=== PATIENT | male | born 1935 | race Caucasian/White ===

== ENCOUNTER → 2016-09-03 08:42 | Outpatient (CLI) | payer MEDICARE ==
[2014-02-27 07:04] VITALS: BMI 29.3
[~2016-09-03 08:42] MED LIST: BACTRIM 400-801 TAB PO; BAYER CHEWABLE81 MG PO; CYCLOBENZAPRINE10 MG PO; GLUCOPHAGE500 MG PO; HYZAAR 100-25 T1 TAB PO; LINZESS145 MCG PO; METOPROLOL TART25 MG PO; METOPROLOL TART50 MG PO; PLAVIX75 MG PO; PRAVACHOL20 MG PO
[2016-09-06 12:08] VITALS: BMI 28.9
== END | disposition home or self-care (01) ==
LOC: D.US 08:30
DX: R10.9 Unspecified abdominal pain (principal)

== ENCOUNTER 2016-09-04 19:57 | Inpatient (IN) | payer MEDICARE ==
[~2016-09-04] VITALS: Ht 180.3 cm; Wt 96.4 kg
--- NOTE | ~2016-09-04 | HEMODYNAMI ---
PATIENT:MANJIT DUFF MEDICAL RECORD: [id number] : 39 LOCATION:D. D.2104 ADMISSION DATE: 09/05/16 Generatedon:09/06/201614:08 Patient name: MANJIT DUFF Patient #: [id number] SSN: : 1935 Date of study: 09/06/2016 Page: Of Hemodynamic Procedure Report Patient Data Patient Demographics Procedure consent was obtained First Name: MANJIT Gender: Male Last Name: SHERIN : 1935 [facility] Initial: PATRICIA Age: 81 year(s) Patient #: [id number] Race: Unknown Additional ID: [id number] Contact details [address]: [address] [place] [address] State: [place] City: [place] Zip code: [address] Past Medical History Allergies Allergen Reaction Date Comments Reported Other allergy 09/06/2016 Novacaine Admission Admission Data Admission Date: 09/05/2016 Admission Time: 13:38 Admit Source: Emergency Insurance Payor: Private department health insurance, Medicare Room #: D.2104 Height (in.): 71 BSA: 2.17 (m2) Height (cm.): 180.34 BMI: 29.99 (kg/m2) Weight (lbs.): 215 Weight (kg.): 97.52 Lab Results Lab Result Date: 09/06/2016 Lab Result Time: 0:00 Biochemistry Name Units Result Min Max Creatinine mg/dl 1.1 --(--*-)-- 0.6 1.3 CBC Name Units Result Min Max Hemoglobin g/dl 13.3 -*(----)-- 13.5 17.5 Procedure Procedure Types Cath Procedure Diagnostic Procedure [facility] w/Coronaries PCI Procedure Coronary Stent Initial Procedure Description Procedure Date Procedure Date: 09/06/2016 Procedure Start Time: 13:24 Procedure End Time: 14:08 Procedure Staff Name Function Joel Monroy MD Performing Physician Pa Stallings RT Scrub Tiffany Velazquez RN Nurse Michele Roca RT Department Editor Sheela Counts RT Monitor Procedure Data Cath Procedure Fluoroscopy Diagnostic fluoroscopy Total fluoroscopy Time: 7.5 time: 7.5 min min Diagnostic fluoroscopy Total fluoroscopy dose: dose: 1074 mGy 1074 mGy Contrast Material Contrast Material Type Amount (ml) Isovue 300 192 Entry Location Entry Primary Successful Side Size Upsize Upsize Entry Closure Succes sful Closure Location (Fr) 1 (Fr) 2 (Fr) Remarks Device Remarks Femoral Right 5 Fr 6 Fr Exoseal artery Short Estimated blood loss: 10 ml Diagnostic catheters Device Type Used For End Catheter Placement Cordis 5Fr JL 4.0 Left Coronary Catheter (MP) Angiography Cordis 5Fr 3DRC Catheter Right Coronary (MP) Angiography Cordis 5Fr Pigtail LV Angiography Catheter (MP) Procedure Complications No complications Procedure Medications Medication Administration Route Dosage Oxygen NC 2 l/min unlisted medication added to field 10 ml Heparin Flush Bag added to field 2 bags (1000units/500ml NS) 0.9% NaCl I.V. 100 ml/hr Versed I.V. 1 mg Fentanyl I.V. 50 mcg Fentanyl I.V. 50 mcg Heparin Bolus I.V. 9400 units Nitroglycerin IC/IA I.C. 50 mcg Versed I.V. 1 mg Plavix P.O. 600 mg Hemodynamics Rest BSA: 2.17 (m2) O2 Consumption: Estimated: 273.95 (ml/min) O2 Consumption indexed : Estimated:126.24 (ml/min/m) Heart Rate: 101 (bpm) Pressure Samples Time Site Value (mmHg) Purpose Heart Use Rate(bpm) 13:32 LV 104/-3,7 EDP 105 13:33 AO 113/70(86) Pullback 104 13:33 LV 121/-7,8 Pullback 104 Gradients Valve Time Site 1 Site 2 Mean SEP/DFP Peak To Heart Use (mmHg) (sec/min) Peak Rate (mmHg) (bpm) Aortic 13:33 LV AO 12 21 8 104 121/-7,8 113/70(86) Calculations Valve P-P Mean Valve Index Valve Source Name Gradient Area Flow (cm2) Aortic 8 12 8 12 Snapshots Pre Cath Intra NCS Post Cath Vital Signs Time Heart Resp SPO2 etCO2 [id number] NIBP Rhythm Pain Sedation Rate (ipm) (%) (mmHg) (mmHg) (mmHg) Status Level (bpm) 13:11:24 101 26 98 0 0 95/65(86) NSR 0 (11) 10(A) , No pain 13:15:32 100 20 95 0 0 83/59(70) NSR 0 (11) 10(A) , No pain 13:19:28 102 18 97 0 0 101/79(93) NSR 0 (11) 10(A) , No pain 13:23:36 103 19 95 0 0 96/65(79) NSR 0 (11) 10(A) , No pain 13:27:41 99 19 94 0 0 98/67(86) NSR 0 (11) 9(A) , No pain 13:31:47 104 20 98 0 0 98/69(85) NSR 0 (11) 9(A) , No pain 13:35:51 103 24 97 0 0 101/73(88) NSR 0 (11) 9(A) , No pain 13:39:57 99 20 98 0 0 96/70(82) NSR 0 (11) 9(A) , No pain 13:44:00 107 22 98 0 0 92/61(75) NSR 0 (11) 9(A) , No pain 13:48:04 101 26 96 0 0 98/67(77) NSR 0 (11) 9(A) , No pain 13:52:10 103 22 96 0 0 83/66(75) NSR 0 (11) 9(A) , No pain 13:56:08 103 24 98 0 0 96/72(83) NSR 0 (11) 9(A) , No pain 14:00:11 104 25 97 0 0 91/68(82) NSR 0 (11) 10(A) , No pain 14:04:54 101 19 98 0 0 117/76(96) NSR 0 (11) 10(A) , No pain Medications Time Medication Route Dose Verified Delivered Reason Notes Effectiveness by by 13:11:47 Oxygen NC 2 Joel Buffie used for l/min Juan Velazquez finance professor 13:13:57 bupivicaine 0.25 added 10 ml Joel Joel for local % 5 to Juan Monroy MD anesthetic field 13:16:27 Heparin Flush added 2 Joel Joel used for Bag to bags Juan Monroy MD procedure (1000units/500ml field NS) 13:16:39 0.9% NaCl I.V. 100 Joel Buffie Per physician ml/hr Juan Velazquez RN 13:20:27 Versed I.V. 1 mg Joel Buffie for sedation Juan Velazquez RN 13:20:33 Fentanyl I.V. 50 Joel Buffie for sedation mcg Juan Velazquez RN 13:29:46 Fentanyl I.V. 50 Joel Buffie for sedation mcg Juan Velazquez RN 13:38:59 Heparin Bolus I.V. 9,400 Joel Buffie for verifi ed units Juan Velazquez RN anticoagulation with dr monroy 13:41:57 Nitroglycerin I.C. 50 Joel Joel for IC/IA mcg Juan cooley 13:50:59 Versed I.V. 1 mg Joel Buffie for sedation Juan Velazquez RN 14:02:30 Plavix P.O. 600 Joel Buffie for mg Juan Velazquez RN antiplatelet therapy Procedure Log Time Note 12:29:40 Admit Source: Emergency department 12:31:34 Patient allergic to Other allergyNovacaine 12:32:08 Patient Height : 71 cm 12:32:15 Patient Weight : 215 kg 12:35:43 Insurance Payor : Private health insurance, Medicare 12:36:24 Lab Result : Hemoglobin 13.3 g/dl 12:36:24 Lab Result : Creatinine 1.1 mg/dl 12:36:53 Lab Result : Troponin l 0.183 ng/ml 12:36:53 Lab Result : CK-MB 2.5 ng/ml 12:38:02 Diagnostic Cath Status : Urgent 12:38:14 Michele Roca RT(R) sent for patient. Start room use. 12:38:15 Time tracking: Regular hours 12:38:19 Plan of Care:Hemodynamics will remain stable., Cardiac rhythm will remain stable., Comfort level will be maintained., Respiratory function will remain adequate., Patient/ family verbilizes understanding of procedure., Procedure tolerated without complication., Recovers from procedure without complications.. 12:38:24 ACC Patient presents with Unstable Angina CCS Anginal Class 4--Inability to carry out any physical activity w/o angina. Angina may occur at rest. 12:38:27 ACCPatient has been prescribed/administered the following anti-anginal medication within the last 2 weeks: None 12:38:43 H&P Date Dictated: 09/05/2016 Within 30 days and on chart.. 12:57:48 Patient received from PCU to CCL 2 Alert and oriented. Tansferred to table in Supine position. 12:57:49 Warm blankets applied, and bobby hugger turned on for patient comfort. 12:57:49 Correct patient and procedure confirmed by team. 12:57:51 Signed procedure consent form obtained from patient. 12:57:52 ECG and BP/O2 sat monitors applied to patient. 12:57:53 Full Disclosure recording started 13:10:18 Vital chart was started 13:10:25 Rhythm: sinus tachycardia 13:10:29 Pre-procedure instructions explained to patient. 13:10:29 Pre-op teaching completed and patient verbalized understanding. 13:10:32 Family in waiting room. 13:10:33 Patient NPO since Midnight. 13:10:36 Is the patient allergic to Iodine/contrast media? No. 13:11:12 Is patient on blood thinner?No 13:11:44 ACC The patient was administered the following blood thiners within the last 24 hours: None 13:11:47 Oxygen 2 l/min NC was given by Tiffany Velazquez RN; used for procedure; 13:13:57 bupivicaine 0.25 % 5 10 ml added to field was given by Joel Monroy MD; for local anesthetic; 13:14:33 Patient diabetic? No. 13:14:38 Previous problem with sedation/anesthesia? No ? 13:14:38 Snore? Yes 13:14:40 Sleep apnea? No 13:14:41 Deviated septum? No 13:14:42 Opens mouth fully? Yes 13:14:43 Sticks out tongue? Yes 13:14:45 Airway obstruction? No ? 13:14:47 Dentures? No ? 13:14:51 Pre procedure: right dorsailis pedis pulse 2+ Normal; easily identifiable; not easily obliterated 13:14:53 Patient pain scale 0/10 ?. 13:15:05 IV patent on arrival in left hand with 0.9% NaCl at KVO. 13:15:11 Lab results completed and on chart. 13:15:14 Right groin area was prepped with chlora-prep and draped in sterile fashion 13:15:15 Alarms reviewed by R. N. 13:15:15 Sharps counted by scrub and verified by R.N. 13:15:20 Use device set Femoral Dx 13:15:22 Acist Syringe opened to sterile field. 13:15:22 Bag Decanter opened to sterile field. 13:15:23 Cardinal Cath Pack opened to sterile field. 13:15:23 Terumo 5Fr Viola Sheath opened to sterile field. 13:15:24 [facility] 260cm J .035 wire opened to sterile field. 13:15:25 Acist Hand Control opened to sterile field. 13:15:26 Acist Manifold opened to sterile field. 13:15:26 Cordis Infinity 5Fr Multipack catheter opened to sterile field. 13:15:27 Tegaderm 4 x 4 opened to sterile field. 13:16:27 Heparin Flush Bag (1000units/500ml NS) 2 bags added to field was given by Joel Monroy MD; used for procedure; 13:16:30 Baseline sample Acquired. 13:16:39 0.9% NaCl 100 ml/hr I.V. was given by Tiffany Velazquez RN; Per physician; 13:19:30 Final Timeout: patient, procedure, and site verified with staff and physician. All members of the team are in agreement. 13:19:33 Right groin site verified by team. 13:19:36 Physical assessment completed. ASA score P 2 - A patient with mild systemic disease as per Joel Monroy MD. 13:19:38 Sedation plan: IV Moderate Sedation Versed, Fentanyl 13:20:27 Versed 1 mg I.V. was given by Tiffany Velazquez RN; for sedation; 13:20:33 Fentanyl 50 mcg I.V. was given by Tiffany Velazquez RN; for sedation; 13:23:55 Procedure started. 13:24:18 Local anesthetic to right femoral artery with Lidocaine 2% by Joel Monroy MD.INITIAL ACCESS ONLY 13:25:02 Zero performed for pressure channel P1 13:25:58 A 5 Fr sheath was inserted into the Right Femoral artery 13:26:38 A Cordis 5Fr JL 4.0 Catheter () was advanced over the wire and used for Left Coronary Angiography. 13:29:46 Fentanyl 50 mcg I.V. was given by Buffie Velazquez RN; for sedation; 13:30:11 Catheter removed. 13:30:16 A Cordis 5Fr 3DRC Catheter (MP) was advanced over the wire and used for Right Coronary Angiography. 13:31:40 Catheter removed. 13:31:49 A Cordis 5Fr Pigtail Catheter (MP) was advanced over the wire and used for LV Angiography. 13:32:47 LV gram done using BUKCLEY 13:32:49 LV hemodynamics recorded. 13:32:51 Injector settings: Ml/sec: 10, Volume: 20, 13:32:56 EF : 45 % 13:33:58 Catheter removed. 13:34:15 Cordis 6FR XBLAD 3.5 guide catheter opened to sterile field. 13:34:16 PeakStreamW [place] 2 J-tip 300cm 0.014 guide wir opened to sterile field. 13:34:17 RevelationixCompak Inflation Kit opened to sterile field. 13:34:22 High Pressure Extension Tubing (Juan) opened to sterile field. 13:36:16 Terumo 6Fr Viola Sheath opened to sterile field. 13:36:26 Sheath upsized to a 6 Fr Short. 13:36:43 ACC PCI Site: mLAD has 80% stenosis. 13:36:45 ACC Pre-intervention KIM Flow is 3. 13:37:34 6 Fr XBLAD 3.5 guide catheter was inserted over the wire 13:38:59 Heparin Bolus 9,400 units I.V. was given by Tiffany Velazquez RN; for anticoagulation; verified with dr monroy 13:39:44 BMW wire advanced. 13:41:57 Nitroglycerin IC/IA 50 mcg I.C. was given by Joel Monroy MD; for vasodilation; 13:47:23 Inflation Number: 1 A Medtronic Integrity 2.25 X 18 stent was prepped and advanced across the Mid LAD. The stent was deployed at 12 SIMONE for 0:23 (min:sec). 13:49:48 Stent catheter was removed intact over wire. 13:50:59 Versed 1 mg I.V. was given by Tiffany Velazquez RN; for sedation; 13:53:54 Inflation Number: 1 A Medtronic Integrity 2.75 X 14 stent was prepped and advanced across the Prox LAD. The stent was deployed at 12 SIMONE for 0:07 (min:sec). 13:59:40 Stent catheter was removed intact over wire. 13:59:41 Wire removed. 13:59:42 Guide catheter removed. 13:59:51 Cordis 6Fr Exoseal opened to sterile field. 14:00:22 Sheath removed intact; hemostasis achieved with Exoseal to the Right Femoral artery. 14:00:25 Procedure ended.(Physican Out) 14:00:37 Fluoroscopy time 07.50 minutes. 14:00:56 Fluoroscopy dose: 1074 mGy 14:00:56 Flurop Dose total: 1074 14:01:02 Contrast amount:Isovue 300 192ml. 14:01:03 Sharps counted by scrub and verified by R.N. 14:01:04 Insertion/operative site no bleeding no hematoma. 14:01:07 Post-op/insertion site Right Femoral artery dressed using a 4 x 4 and Tegaderm. 14:01:12 Post right femoral artery:stable, clean and dry 14:01:24 Post Procedure Pulses reassessed and unchanged 14:01:55 Post-procedure physical assessment completed. ASA score P 2 - A patient with mild systemic disease as per Joel Monroy MD. 14:01:58 Post procedure rhythm: unchanged. 14:02:03 Estimated blood loss: 10 ml 14:02:04 Post procedure instruction explained to patient.Patient verbalizes understanding. 14:02:05 Patient needs reinforcement of post procedure teaching. 14:02:12 Procedure type changed to Cath procedure, Diagnostic procedure, LHC, LHC w/Coronaries, PCI procedure, Coronary Stent Initial 14:02:17 Procedure Complication : No complications 14:02:19 See physician's report for complete and final results. 14:02:30 Plavix 600 mg P.O. was given by Tiffany Velazquez RN; for antiplatelet therapy; 14:05:17 Procedure and supply charges have been captured, reviewed, submitted and are correct. 14:08:11 Vital chart was stopped 14:08:14 Report given to PCU. 14:08:19 Patient transfered to PCU with Bed. 14:08:26 Procedure ended. 14:08:26 Full Disclosure recording stopped 14:08:30 End room use (Document Last) Intervention Summary Intervention Notes Time ActionType Lesion and Equipment Action# Pressure Duration Attributes Used 13:47:23 Place stent Mid LAD Medtronic 1 12 00:23 Integrity 2.25 X 18 stent 13:53:54 Place stent Prox LAD Medtronic 1 12 00:07 Integrity 2.75 X 14 stent Device Usage Item Name Manufacture Quantity Catalog Hospital Part Current Minimal Lot# / Number Charge Number Stock Stock Serial# Code Acist Acist 1 18848 [id number] 213845 500248 20 Syringe Medical Systems Inc Bag Microtek 1 2002S 490177 85446 360641 5 [employer] Cardinal Cardinal [address] [address]67 78338 377790 5 Cath Pack Health Terumo 5Fr Terumo 1 [id number] 323816 405544 849584 [address] [facility] 1 150889 708751 848374 575921 30 260cm J .035 wire Acist Hand Acist 1 69192 983434 214399 486370 5 Control Medical Systems Inc Acist Acist 1 06598 678457 090959 893274 5 SEA Medical Systems Inc Cordis Cardinal 1 [id number] 576355 40428 200909 30 Infinity Health 5Fr Multipack catheter Tegaderm 4 3M 1 1626W 776739 172935 654509 5 x 4 Cordis 5Fr Cardinal 1 830071 5 JL 4.0 Health Catheter (MP) Cordis 5Fr Cardinal 1 205669 5 3DRC Health Catheter (MP) Cordis 5Fr Cardinal 1 435770 5 Pigtail Health Catheter (MP) Cordis 6FR Cardinal 1 16280678 095953 306031 205612 10 XBLAD 3.5 Health guide catheter [place] [employer] BMW [place] 1 [id number] 290042 622353 190277 5 [place] 2 Vascular J-tip 300cm 0.014 guide wir Merit Merit 1 [id number] 921993 481029 274781 15 [employer] Medical Inflation Kit High Merit 1 [id number] 146495 32896 239920 10 Pressure Medical Extension Tubing (Monroy) Terumo 6Fr Terumo 1 ELR588 664661 029467 920130 40 Viola Sheath Medtronic Medtronic 1 [id number] 677599 412532 800032 8 [id number] Integrity 2.25 X 18 stent Medtronic Medtronic 1 [id number] 361641 745369 183873 2 [id number] Integrity 2.75 X 14 stent Cordis 6Fr Cardinal 1 [id number] 169148 416003 650061 10 [facility] Signature Audit [place] Stage Time Signature Unsigned Intra-Procedure 09/06/2016 Sheela 2:08:53 PM Counts RT(R) Signatures Monitor : Sheela Signature : Counts RT Date : Time : [address] [address]
[~2016-09-04 19:57] MED LIST changes: -BACTRIM 400-801 TAB PO; -CYCLOBENZAPRINE10 MG PO; -LINZESS145 MCG PO; -METOPROLOL TART25 MG PO
[2016-09-04 20:37] LABS: BASOPHILS 0.2 % (0.0-2.0); EOSINOPHILS 0.2 % (0-7); HEMATOCRIT 39.9 % (42.0-54.0); HEMOGLOBIN 13.4 g/dL (13.5-17.5); IMMATURE GRANULOCYTES 0.2 % (0-5); LYMPHOCYTES 15.5 % (15-50); MCH 32.1 pg (26.0-34.0); MCHC 33.6 g/dL (31.0-37.0); MCV 95.7 fL (80.0-100.0); MEAN PLATELET VOLUME 10.1 fL (7.4-10.4); MONOCYTES 9.8 % (2-11); NEUTROPHILS 74.1 % (40-80); PLATELET COUNT 145 10x3/uL (130-400); RBC 4.17 10x6/uL (4.20-6.10); RDW 13.7 % (11.5-14.5)
[2016-09-04 20:53] LABS: ALBUMIN 3.1 g/dL (3.4-5.0); ANION GAP 11.7 mmol/L (8-16); BILIRUBIN - TOTAL 1.31 mg/dL (0.2-1.3); CALCIUM 8.8 mg/dL (8.5-10.1); CARBON DIOXIDE 28.7 mmol/L (21.0-32.0); CREATININE - SERUM 1.3 mg/dL (0.6-1.3); POTASSIUM - SERUM 3.4 mmol/L (3.5-5.1); PROTEIN - SERUM 6.1 g/dL (6.4-8.2)
[2016-09-04 21:01] LABS: TROPONIN-I 0.046 ng/mL (0.000-0.060)
[2016-09-04 22:18] LABS: HEMATOCRIT 40.1 % (42.0-54.0); HEMOGLOBIN 13.1 g/dL (13.5-17.5)
[2016-09-04 22:47] LABS: CALC OSMOLALITY 281 mosm/kg (275-300); CALCIUM 8.2 mg/dL (8.5-10.1); CARBON DIOXIDE 27.5 mmol/L (21.0-32.0); CHLORIDE - SERUM 101 mmol/L (98-107); CKMB 1.5 U/L (0.0-3.6); CREATINE KINASE 76 UL (21-232); CREATININE - SERUM 1.3 mg/dL (0.6-1.3); GLUCOSE 188 mg/dL (74-106); POTASSIUM - SERUM 3.2 mmol/L (3.5-5.1); SODIUM 138 mmol/L (136-145); UREA NITROGEN 15 mg/dL (7-18); eGFR NON AFRICAN AMERICAN 56 mL/min (90-120)
[2016-09-04 22:52] LABS: TROPONIN-I 0.091 ng/mL (0.000-0.060)
--- NOTE | 2016-09-04 23:34 | NUR ---
PT ARRIVED VIA STRETCHER FROM ER. PT STATES HE IS TOO WEAK TO GET OFF THE STRETCHER AND INTO BED. ALERT AND ORIENTED. AT BEDSIDE.
[2016-09-04 23:54] VITALS: BP 117/84; BMI 30.1
[2016-09-05] MEDS ORDERED: BACTRIM 400-801 TAB PO (00:01)
[2016-09-05] MEDS ORDERED: LINZESS145 MCG PO (00:01)
[2016-09-05] MEDS ORDERED: METOPROLOL TART25 MG PO (00:01)
[2016-09-05] MEDS ORDERED: CYCLOBENZAPRINE10 MG PO (00:02)
--- NOTE | 2016-09-05 00:04 | NUR ---
PT ARRIVED VIA STRETCHER APPROX 2330. ALERT ORIENTED CONVERSANT. DENIES NEEDS. STATES SHORTNESS OF BREATH ON EXERTION. STATES BETTER WHEN NOT TRYING TO WALK. AT BEDSIDE.
[2016-09-05 00:35] VITALS: BP 117/84
[2016-09-05 04:28] VITALS: BP 141/83
[2016-09-05 06:51] LABS: CKMB 2.1 U/L (0.0-3.6); CREATINE KINASE 75 UL (21-232); TROPONIN-I 0.142 ng/mL (0.000-0.060)
--- NOTE | 2016-09-05 07:28 | NUR ---
AM ROUNDING- PT SITTING UP IN CHAIR WATCHING TV. DENIES ANY NEED AT CURRENT TIME. PT IS AWAITING DOCTOR TO MAKE ROUNDS. ON MONITOR SHOWING ST, HR 118. PER REPORT FROM UNDERWRITING CLERKS SUPERVISOR NURSE ASPEN, PTS HR HAS BEEN RUNNING HIGH, PT IS ASYMPTOMATIC. IV SEEN TO LEFT HAND SALINE LOCKED AND PATENT. ON 02 AT 3L VIA NC. AWAITING DOCTOR TO MAKE ROUNDS FOR NEW ORDERS. NO NEED AT CURRENT TIME BY PT. WILL CONTINUE TO MONITOR.
[2016-09-05 08:00] VITALS: BP 121/74
--- NOTE | 2016-09-05 10:34 | NUR ---
PAGED DR. HOBSON TO INFORM HIM OF PTS AM LAB RESULTS. PTS POTASSIUM IS 3.2. AWAITIG CALLBACK.
--- NOTE | 2016-09-05 10:36 | NUR ---
DR. HOBSON CALLED BACK. NEW ORDERS RECEIVED TO PLACE PT ON EP. WILL CONTINUE TO MONITOR.
[2016-09-05 10:52] LABS: CKMB 2.5 U/L (0.0-3.6); CREATINE KINASE 67 UL (21-232)
[2016-09-05 10:53] LABS: TROPONIN-I 0.183 ng/mL (0.000-0.060)
[2016-09-05 12:00] VITALS: BP 110/71
--- NOTE | 2016-09-05 13:23 | NUR ---
TALKED TO DR. HOBSON, STATED FAMILY WAS CONCERNED ABOUT PTS MEDICATONS. DR. HOBSON STATED HE WAS GOING IN TO SEE THE PT FIRST. AWAITING NEW ORDERS.
[2016-09-05 14:32] VITALS: BP 116/75
--- NOTE | 2016-09-05 14:52 | NUR ---
CONSENTS SIGNED AND DATED AND PLACED IN CHART FOR CARDIAC CATH TOMORROW.
[2016-09-05 15:28] LABS: BASOPHILS 0.1 % (0.0-2.0); EOSINOPHILS 0.1 % (0-7); HEMATOCRIT 42.2 % (42.0-54.0); HEMOGLOBIN 13.9 g/dL (13.5-17.5); IMMATURE GRANULOCYTES 0.4 % (0-5); LYMPHOCYTES 14.1 % (15-50); MCH 31.4 pg (26.0-34.0); MCHC 32.9 g/dL (31.0-37.0); MCV 95.5 fL (80.0-100.0); MONOCYTES 9.7 % (2-11); NEUTROPHILS 75.6 % (40-80); PLATELET COUNT 151 10x3/uL (130-400); RBC 4.42 10x6/uL (4.20-6.10); WBC 10.8 10x3/uL (4.8-10.8)
--- NOTE | 2016-09-05 16:39 | NUR ---
NEW ORDERS RECEIVED FROM DR. HOBSON FOR SCDS. WILL PLACE ON PT ORDERED.
--- NOTE | 2016-09-05 17:52 | NUR ---
SCDS PLACED ON PT ORDERED.
--- NOTE | 2016-09-05 18:45 | NUR ---
PT SITTING UP IN BED WATCHING TV. DENIES ANY NEED AT CURRENT TIME. WILL CONTINUE TO MONITOR.
--- NOTE | 2016-09-05 19:30 | NUR ---
SITTING UP IN BEDSIDE CHAIR VISITING WITH FAMILY MEMBERS, RESP UNLAB WITH O2 @3L NC IN USE. TELEMETRY IN PLACE SHOWING HR SR PER READINESS PARAPROFESSIONAL. LEFT HAND SL INTACT WITH NO R/S NOTED AT SITE. UP AD RICHIE W/O DIFF. BILAT SCDS TO LOWER LEGS IN PLACE. DENIES NEEDS AT THIS TIME. C/L IN REACH. CONTINUE TO MONITOR.
[2016-09-05 20:00] VITALS: BP 117/69
--- NOTE | 2016-09-05 20:58 | NUR ---
BACK IN BED, ATIVAN 0.5MG PO GIVEN FOR ANXIETY. C/L IN REACH.
--- NOTE | 2016-09-05 23:10 | NUR ---
EYES CLOSED, RESP UNLAB WITH NO S/S OF ACUTE DISTRESS NOTED. C/L IN REACH. CONTINUE TO MONITOR.
[2016-09-06 00:33] VITALS: BP 124/79
[2016-09-06 03:44] LABS: BASOPHILS 0.2 % (0.0-2.0); EOSINOPHILS 0.1 % (0-7); HEMATOCRIT 39.8 % (42.0-54.0); HEMOGLOBIN 13.3 g/dL (13.5-17.5); IMMATURE GRANULOCYTES 0.3 % (0-5); LYMPHOCYTES 14.1 % (15-50); MCH 31.9 pg (26.0-34.0); MCHC 33.4 g/dL (31.0-37.0); MCV 95.4 fL (80.0-100.0); MEAN PLATELET VOLUME 9.9 fL (7.4-10.4); MONOCYTES 8.6 % (2-11); NEUTROPHILS 76.7 % (40-80); PLATELET COUNT 159 10x3/uL (130-400); RBC 4.17 10x6/uL (4.20-6.10); RDW 13.9 % (11.5-14.5); WBC 12.7 10x3/uL (4.8-10.8)
[2016-09-06 04:00] LABS: INR 1.23 (0.85-1.17); PROTIME 15.4 SECONDS (11.6-15.0)
[2016-09-06 04:01] LABS: APTT 29.3 SECONDS (22.8-39.4); CALCIUM 9.4 mg/dL (8.5-10.1); CARBON DIOXIDE 26.3 mmol/L (21.0-32.0); CREATININE - SERUM 1.1 mg/dL (0.6-1.3); POTASSIUM - SERUM 4.3 mmol/L (3.5-5.1)
--- NOTE | 2016-09-06 04:39 | NUR ---
VOICES NO C/O PAIN OR DISCOMFORT AT THIS TIME. HOB UP, SR UP X2, C/L IN REACH. CONTINUE TO MONITOR.
[2016-09-06 05:19] VITALS: BP 123/72
[2016-09-06 12:08] VITALS: Ht 180.3 cm; Wt 96.4 kg
[2016-09-06 12:33] VITALS: BP 111/79
--- NOTE | 2016-09-06 12:37 | NUR ---
HASD BEEN UP IN CHAIR WAITING FOR CATH. NO DISTRESS OR COMPLAINTS NOTED. NO CO OF CHEST PAIN. MONITOR SHOWS ST@105. WILL CONTINUE TO MONITOR
--- NOTE | 2016-09-06 12:54 | NUR ---
TO BRANCH CHIEF.
--- NOTE | 2016-09-06 14:29 | NUR ---
BACK FROM FUSING MACHINE OPERATOR. R GROIN IS CLEAN,DRY. NO EDEMA OR BLEEDING. PEDAL PULSE IS PRESENT. PATIENT INSTRUCTED TO LAY FLAT FOR 4 HOURS. VS STABLE. WILL CONTINUE TO MONITOR
--- NOTE | 2016-09-06 15:42 | NUR ---
SITE REMAINS CLEAN DRY & NO EDEMA AND NO BLEEDING
--- NOTE | 2016-09-06 18:30 | NUR ---
CAN SIT UP AND MOVE AROUND AT THIS TIME. RT GROIN CDI, WITH PPP BILAT WITH FEET WARM AND DRY. TELEMETRY IN PLACE SHOWING HR ST AT 113 WITH FIRST DEGREE AVB PER FOUNTAIN PEN NIBS INSPECTOR. LEFT HAND SL INTACT WITH NO R/S NOTED AT SITE. O2 @ 3L NC IN PLACE, RESP EVEN AND UNLAB. VOICES NO C/O PAIN OR DISCOMFORT. CONSTINUE TO MONITOR.
--- NOTE | 2016-09-06 18:45 | NUR ---
SITTING UP IN BEDSIDE CHAIR EATING DINNER. VOICES NO C/O AT THIS TIME. C/L IN REACH.
--- NOTE | 2016-09-06 21:18 | NUR ---
BACK IN BED W/O DIFF. HAVING SOME ANXIETY/AGITATION AT THIS TIME. ATIVAN 0.5MG PO GIVEN AT THIS TIME. C/L IN REACH. VISITING AT BEDSIDE.
[2016-09-06 21:43] VITALS: BP 151/83
--- NOTE | 2016-09-06 23:53 | NUR ---
EYES CLOSED, RESP UNLAB WITH NO S/S OF ACUTE DISTRESS NOTED. C/L IN REACH. CONTINUE TO MONITOR.
[2016-09-07 02:17] VITALS: BP 131/63
[2016-09-07 05:24] LABS: BASOPHILS 0.1 % (0.0-2.0); EOSINOPHILS 0.2 % (0-7); HEMATOCRIT 38.6 % (42.0-54.0); HEMOGLOBIN 12.8 g/dL (13.5-17.5); IMMATURE GRANULOCYTES 0.3 % (0-5); LYMPHOCYTES 13.7 % (15-50); MCH 31.4 pg (26.0-34.0); MCHC 33.2 g/dL (31.0-37.0); MCV 94.6 fL (80.0-100.0); MEAN PLATELET VOLUME 10.1 fL (7.4-10.4); NEUTROPHILS 74.7 % (40-80); PLATELET COUNT 153 10x3/uL (130-400); RBC 4.08 10x6/uL (4.20-6.10); RDW 13.7 % (11.5-14.5)
[2016-09-07 05:33] LABS: WBC 9.5 10x3/uL (4.8-10.8)
[2016-09-07 05:45] VITALS: BP 129/63
[2016-09-07 05:49] LABS: ANION GAP 15.3 mmol/L (8-16); CALCIUM 8.9 mg/dL (8.5-10.1); CARBON DIOXIDE 25.6 mmol/L (21.0-32.0); CREATININE - SERUM 1.2 mg/dL (0.6-1.3); POTASSIUM - SERUM 3.9 mmol/L (3.5-5.1)
--- NOTE | 2016-09-07 07:45 | NUR ---
PT SITTIN UP IN CHAIR AT BEDSIDE. BRUSHING TEETH. SPOUSE IN ROOM. PT A/O. WAITING ON CXR. DENIES NEEDS. STATES SOB BETTER. CALL LIGHT WITH IN REACH. WILL CONT. TO MONITOR.
[2016-09-07 07:52] VITALS: BP 131/86
--- NOTE | 2016-09-07 09:43 | NUR ---
SITTING UP IN CHAIR. NO APPARENT DISTRESS. MONITOR SHOWS ST @ RATE OF 103.
[2016-09-07 12:08] VITALS: BP 150/71
--- NOTE | 2016-09-07 13:51 | NUR ---
SITTING UP IN CHAIR AT BEDSIDE. LE ELEVATED. NO DISTRESS NOTED. DENIES NEEDS. DENIES SOB. CALL LIGHT WITH IN REACH. WILL CONT. TO MONITOR.
[2016-09-07 15:51] VITALS: BP 137/77
--- NOTE | 2016-09-07 16:30 | NUR ---
PT SITTING IN CHAIR AT BEDSIDE. A/O. DENIES NEEDS. NO DISTRESS NOTED. C/O HIS ROOM BEING HOT. REQUEST HIS DOOR BE LEFT OPEN. CALL LIGHT WITH IN REACH. WILL CONT. TO MONITOR.
--- NOTE | 2016-09-07 18:37 | NUR ---
PT SITTING IN CHAIR AT BEDSIDE. LE ELEVATED. A/O DENIES NEEDS. SPOUSE IN ROOM. CALL LIGHT WITH IN REACH.
--- NOTE | 2016-09-07 19:30 | NUR ---
ASSESSMENT COMPLETE, IN BED WITH EYES CLOSED, RESP UNLAB NOT WEARING O2 @ 2 L VIA NC AT THIS TIME. HOB UP SR UP X2, C/L IN REACH. VISITING AT BEDSIDE. DENIES NEEDS UPON AROUSAL TELEMETRY IN PLACE, SHOWING HR ST PER CHILD SUPPORT SPECIALIST. LEFT HAND SL INTACT AND PATENT WITH NO R/S NOTED AT SITE. RT GROIN DRSG CDI, PPP BILAT WITH SKIN WARM AND DRY. NOT WEARING SCDS AT THIS TIME. UP AD RICHIE W/O DIFF. CONTINUE TO MONITOR.
[2016-09-07 21:06] VITALS: BP 133/70
--- NOTE | 2016-09-07 21:40 | NUR ---
ATIVAN 0.5MG PO GIVEN FOR C/O AGITATION. COMFORT MEASURES GIVEN. HOB UP SR UP X2, C/L IN REACH. CONTINUE TO MONITOR.
[2016-09-08 00:43] VITALS: BP 103/65
--- NOTE | 2016-09-08 01:05 | NUR ---
EYES CLOSED, RESP EVEN AND UNLAB WITH NO S/S OF ACUTE DISTRESS NOTED. C/L IN REACH.
[2016-09-08 04:57] LABS: BASOPHILS 0.3 % (0.0-2.0); EOSINOPHILS 0.3 % (0-7); HEMATOCRIT 37.6 % (42.0-54.0); HEMOGLOBIN 12.5 g/dL (13.5-17.5); IMMATURE GRANULOCYTES 0.1 % (0-5); LYMPHOCYTES 16.1 % (15-50); MCH 31.6 pg (26.0-34.0); MCHC 33.2 g/dL (31.0-37.0); MCV 94.9 fL (80.0-100.0); MEAN PLATELET VOLUME 9.9 fL (7.4-10.4); NEUTROPHILS 73.2 % (40-80); PLATELET COUNT 182 10x3/uL (130-400); RBC 3.96 10x6/uL (4.20-6.10); RDW 13.8 % (11.5-14.5); WBC 8.7 10x3/uL (4.8-10.8)
[2016-09-08 05:21] LABS: ALBUMIN 2.5 g/dL (3.4-5.0); ANION GAP 13.1 mmol/L (8-16); BILIRUBIN - TOTAL 1.2 mg/dL (0.2-1.3); CALCIUM 8.8 mg/dL (8.5-10.1); CARBON DIOXIDE 27.2 mmol/L (21.0-32.0); CREATININE - SERUM 1.1 mg/dL (0.6-1.3); MAGNESIUM - SERUM 1.9 mg/dL (1.8-2.4); PHOSPHOROUS 2.7 mg/dL (2.5-4.9); PROTEIN - SERUM 6.4 g/dL (6.4-8.2)
[2016-09-08 05:26] VITALS: BP 117/55
[2016-09-08 05:31] LABS: POTASSIUM - SERUM 3.3 mmol/L (3.5-5.1)
--- NOTE | 2016-09-08 07:52 | NUR ---
ASSESSMENT DONE. PT SITTING UP IN CHAIR AT BEDSIDE. A/O, BUT SLIGHTLY CONFUSED ABOUT TIME. REQUEST COFFEE. REFUSING TO WEAR SCD'S AT THIS TIME. PT WANTS TO D/C TO A REHAB. REFUSING TO WEAR O2. O2 SAT 93% ON RA. CALL LIGHT WITH IN REACH. WILL CONT. TO MONITOR.
[2016-09-08 08:00] VITALS: BP 126/75
--- NOTE | 2016-09-08 10:18 | NUR ---
UP TO BR. NO NEEDS INDICATED. CALL LIGHT IN REACH. WILL CONT. PLAN OF CARE.
--- NOTE | 2016-09-08 11:48 | NUR ---
Patient Name: MANJIT DUFF Admission Status: ER Accout number: [id number] Admission Date: 09-05-2016 : 1935 Admission Diagnosis: Attending: CINTHYA Current LOS: 3 Anticipated DC Date: 09-08-2016 Planned Disposition: Inpatient Rehab Primary Insurance: MEDICARE A & B PLANNED EXTERNAL PROVIDER: [facility] Discharge Planning Comments: * Is the patient Alert and Oriented? Yes 0 * How many steps to enter\exit or inside your home? NONE 0 * PCP DR. GUZMÁN 0 * Pharmacy [facility] 0 * Preadmission Environment Home with Family 0 * ADLs Independent 0 * Equipment Cane Walker 0 * Other Equipment NO MEDICAL EQUIPMENT PROVIDER PREFERENCE 0 * List name and contact numbers for known caregivers / representatives who currently or will assist patient after discharge: RIVERA DUFF, SPOUSE, 0 * Community resources currently utilized None 0 * Please name any agencies selected above. NONE 0 * Additional services required to return to the preadmission environment? Yes * Can the patient safely return to the preadmission environment? Yes 0 * Has this patient been hospitalized within the prior 30 days at any hospital? No 0 CM MET WITH PT AND SPOUSE IN ROOM TO DISCUSS DISCHARGE PLANNING AND NEEDS. PT REPORTS LIVING AT HOME INDEPENDENTLY WITH SPOUSE. PT HAS CANE AND WALKER AT HOME IF NEEDED WITH NO MEDICAL EQUIPMENT PROVIDER PREFERENCE. PT HAS NO OUTSIDE SERVICES ASSISTING IN THE HOME. CM DISCUSSED AVAILABILITY OF HOME HEALTH, REHAB SERVICES AND MEDICAL EQUIPMENT. [facility], PT'S SPOUSE VISITED THERE THIS MORNING AND WOULD LIKE TO GET PT THERE TODAY IF POSSIBLE. PT REPORTS HIS SPOUSE WILL PICK HIM UP FOR DISCHARGE HOME. IMPORTANT MESSAGE FROM MEDICARE PROVIDED AND EXPLAINED. CM CALLED AND SPOKE TO KEVIN OF [facility], , WHO WILL RECEIVE REFERRAL AND SCREEN FOR ADMISSION TODAY. CM FAXED REFERRAL TO [facility] AT [phone]. CM WAITING [facility]ER[facility]. Barrel Charrer: Roddy Astudillo
--- NOTE | 2016-09-08 11:51 | HP ---
PATIENT: MANJIT DUFF MEDICAL RECORD: [id number] ACCOUNT: [id number] LOCATION:[address] : [birth year] ADMISSION DATE: 09/05/16 HISTORY AND PHYSICAL EXAMINATION Admission History and Physical HISTORY OF PRESENT ILLNESS: A 81-year-old male who presents to the Emergency Room late last night with progressive shortness of breath, increasing weakness, and shortness of breath for the past 10 days. PAST MEDICAL HISTORY: Significant for coronary artery disease with prior stent placement by Dr. Arce, chronic back pain, hypokalemia, non-Hodgkin lymphoma in remission, anxiety, constipation. CURRENT MEDICATIONS: Losartan/hydrochlorothiazide 125 one p.o. daily, metoprolol 25 mg b.i.d., ____ for constipation. PAST SURGICAL HISTORY: Had lumbar fusion late last year and the prior stent placement as reported above. SOCIAL HISTORY: . REVIEW OF SYSTEMS: GENERAL: No acute change in weight or appetite. HEENT: No cephalgia, visual changes, tinnitus, epistaxis or dysphagia. CARDIOVASCULAR: Denies chest pain, does admit to dyspnea on exertion, persistent tachycardia for the past week, severe dyspnea on exertion. PULMONARY: Denies hemoptysis, denies night sweats. Does admit shortness of breath with minimal activity. GASTROINTESTINAL: Denies hematemesis, hematochezia or melena. GENITOURINARY: Denies dysuria. Denies any change in frequency. MUSCULOSKELETAL: No acute changes. ENDOCRINE: Denies polyuria, polydipsia, or polyphagia. PHYSICAL EXAMINATION: VITAL SIGNS: Temp 98.1, heart rate 117, respirations 20, blood pressure 110/71, O2 sats 98% with supplemental O2 at 2 liters via nasal cannula. HEENT: Head is normocephalic, atraumatic. Eyes: Pupils equal, round, reactive. Ears: Canals patent, TMs are intact. Nose: Nares patent without drainage. Throat: No erythema, no exudates. NECK: Supple. No lymphadenopathy, no JVD. HEART: Regular, tachycardic. No S3, S4, no rub. LUNGS: Clear to auscultation bilaterally. Breathing is nonlabored. ABDOMEN: Soft, nontender, bowel sounds positive. EXTREMITIES: Present times 4, no edema. NEUROLOGIC: Cranial nerves II-XII intact. No gross deficits. No focal deficits. SKIN: Warm, dry. No rash. DIAGNOSTIC DATA: EKG shows sinus tachycardia with ST and T-wave abnormalities change from prior. Chest x-ray: No acute process. LABORATORY DATA: CK is 67, CK-MB is 2.5, troponin 0.183. Initial troponin was 0.091. CK-MB is 2.5, hemoglobin at 13.1, hematocrit 40.1. Chemistry shows HISTORY AND PHYSICAL [id number] MANJIT DUFF sodium of 138, potassium 3.2, chloride 101, bicarb 27.5, BUN 15, creatinine 1.3. ASSESSMENT AND PLAN: 1. Coronary artery disease with abnormal EKG, elevated enzymes, consistent with unstable angina. The patient is admitted to Dr. Wallace. Dr. Martinez was consulted. Discussed case with Dr. Martinez. He will see the patient. Further studies. Restart his metoprolol for rate control, Plavix, Afrin. 2. Anxiety. Ativan 0.5 one p.o. q.8 hours p.r.n. anxiety, insomnia. Cycle enzymes. N.p.o. after midnight. TRANSINT:[id number] Voice Confirmation ID: [id number] DOCUMENT ID: [id number] NIK VIDAL DO at 1151 CC: [id number] DICTATION DATE: 09/05/16 1347 TRUCK HEADLIGHT ASSEMBLER: 09/05/16 1414 ADM IN [facility] [address] [place] [address]
[2016-09-08 12:00] VITALS: BP 121/77
--- NOTE | 2016-09-08 12:53 | NUR ---
PT SLEEPING SITTIN UP IN CHAIR AT BEDSIDE. SPOUSE IN ROOM. RESP EVEN AND UNLABORED. CALL LIGHT WITH IN REACH. WILL CONT. TO MONITOR.
--- NOTE | 2016-09-08 14:25 | NUR ---
Patient Name: MANJIT DUFF Encounter No: [id number] : 1935 Primary Insurance: MEDICARE A & B Anticipated DC Date: 09-08-2016 Planned Disposition: Inpatient Rehab External Planned Provider: [facility] DCP follow-up note: CM RECEIVED CALL FROM KEVIN OF [facility]ED BY [facility], , WHO RECEIVED REFERRAL AND WILL COME TO HOSPITAL AND MEET WITH PT IN ABOUT 20 MINUTES AND COMPLETE SCREEN FOR POSSIBLE ADMISSION TODAY. CM NOTIFIED PT. CM WAITING ADMISSION DETERMINATION FROM [facility]. Greenskeeper Laborer: Roddy Astudillo
--- NOTE | 2016-09-08 15:18 | NUR ---
Patient Name: MANJIT DUFF Encounter No: [id number] : 1935 Primary Insurance: MEDICARE A & B Anticipated DC Date: 09-08-2016 Planned Disposition: Inpatient Rehab External Planned Provider: [facility] DCP follow-up note: ANTOINETTE SPOKE TO KEVIN OF [facility] WHO REPORTED THAT SHE HAS MET WITH PT AND SPOUSE, COMPLETED SCREENING AND PT HAS BEEN ACCEPTED FOR INPATIENT REHAB. KEVIN WILL SCHEDULE [facility] FOR LABOR ECONOMICS PROFESSOR IF PT IS READY TO DISCHARGE TODAY. CM LEFT MESSAGE FROM DR. TORIBIO, NOTIFYING OF ACCEPTANCE IN INPATIENT REHAB IF PT IS READY TO DC TODAY. Roddy Astudillo, CASE MANAGEMENT
[2016-09-08 15:55] VITALS: BP 129/81
--- NOTE | 2016-09-08 16:47 | NUR ---
[facility] [phone]. SPOKE TO JONATHON. WAS TOLD SOMEONE WOULD HAVE TO CALL ME BACK THAT "THEY WERE ALL RUNNING AROUND." SHE TOOK DOWN MY NAME AND NUMBER SO THE RECEIVING NURSE COULD CALL ME BACK FOR REPORT.
--- NOTE | 2016-09-08 17:00 | NUR ---
Patient Name: MANJIT DUFF Encounter No: [id number] : 1935 Primary Insurance: MEDICARE A & B Anticipated DC Date: 09-08-2016 Planned Disposition: Inpatient Rehab External Planned Provider: [facility] DCP follow-up note: RECEIVED DISCHARGE ORDER, FAXED DISCHARGE INFORMATION TO [facility] AT [phone]. NOTIFIED KEVIN OF [facility] WHO REPORTED THAT VAN WILL PLANNING LEAD PT TODAY AT 1730 HOURS. CM NOTIFIED PT AND SPOUSE IN ROOM, PT IN AGREEMENT WITH DISCHARGE TO REHAB TODAY. CM NOTIFIED BEDSIDE NURSE. NURSE REPORT TO BE CALLED TO [phone]. [facility] VAN TO PLANNING LEAD PT AT 1730 HOURS TODAY. Roddy Astudillo, CASE MANAGEMENT
--- NOTE | 2016-09-08 17:02 | NUR ---
D/C INSTRUCTIONS GIVEN TO PT. TELEMETRY REMOVED. PT REQUEST IV BE TAKEN OUT. PT IT D/C TO REHAB. AWAITING TRANSPORTATION FROM [facility].
--- NOTE | 2016-09-08 17:10 | NUR ---
REPORT GIVEN TO KHRIS DILL AT [facility]. AWAITING FACILITY TRANSPORT.
--- NOTE | 2016-09-08 17:15 | NUR ---
PT D/C'D TO INPATIENT REHAB FACILITY VIA FACILITY TRANSPORTATION. PT'S SPOUSE HAS PT'S BELONGINGS.
--- NOTE | 2016-09-13 15:45 | OP ---
PATIENT NAME: MANJIT DUFF MEDICAL RECORD: [id number] :[birth year] LOCATION:[address] ADMISSION DATE:09/05/16 SURGEON: KADE MERCADO M.D. DATE OF OPERATION: 09/06/2016 Catheterization Report REFERRING PHYSICIAN: Dr. Wallace. PROCEDURES PERFORMED: 1. Selective coronary angiography. 2. Left heart catheterization with ventriculogram. 3. PTCA and stent placed in the LAD. INDICATION: A 81-year-old gentleman presented with acute coronary syndrome. EQUIPMENT USED: A 5-Surinamese JL4, Sky right, pigtail catheter. INTERVENTION: A 6-Surinamese XB LAD guide, BMW guide wire, 2.25 x 18 mm Integrity stent, 2.75 x 14 mm Integrity stent. TECHNIQUE: A 5-Surinamese sheath was inserted in retrograde fashion in the right common femoral artery. Next, selective coronary angiography was performed in standard views using 5-Surinamese JL4 and Sky right. Left heart catheterization was performed using pigtail catheter. CORONARY ANATOMY: 1. Left main: Left main trunk is moderate in caliber. It gives rise to the LAD and circumflex. There is no obstruction. 2. LAD: This is a moderate caliber vessel extending to the apex. The proximal vessel demonstrates an ulcerated 80% stenosis at the level of first diagonal branch. Just beyond this lesion is hazy 90% stenosis. At the junction of the distal and apical segment, there is a smooth 60% stenosis. 3. Circumflex: This vessel is moderate in caliber. The proximal vessel has been stented. The stent is widely patent. 4. Right coronary: This vessel is moderate in caliber and dominant. The proximal and distal vessels are widely patent. There is no evidence of any restenosis. The mid vessel demonstrates mild irregularities. Nothing is worse than 20%. 5. Left ventricle: Left ventricle is normal size. No wall motion abnormalities are seen. Estimated ejection fraction is mildly impaired around 45%. DESCRIPTION OF INTERVENTION: A 6-Surinamese sheath was inserted in retrograde fashion in the right common femoral artery. Next, 100 units per kilogram of heparin was infused. A 6-Surinamese XB LAD guide was advanced and engaged in the left main coronary artery. Next, a BMW guide wire was placed in the distal LAD. The proximal LAD was stented with a 2.75 x 14 mm Integrity stent at 13 atmospheres. Next, a 2.25 x 18 mm Integrity stent was placed in the mid LAD and deployed at 12 atmospheres. Injection revealed both stents to be widely patent with 0% residual stenosis. There was some concern about stenting of the distal and apical segment as there were several hinge points throughout this area. The wire was pulled back. There is no compromise of the distal vessel. At this point, the wire and guide were removed. OPERATIVE REPORT [id number] MANJIT DUFF IMPRESSION: Successful percutaneous transluminal coronary angioplasty and stent in the LAD. TRANSINT:[id number] Voice Confirmation ID: [id number] DOCUMENT ID: [id number] KADE MERCADO M.D. at 1545 CC: [id number] DICTATION DATE: 09/06/16 1407 SPOUTING INSTALLER: 09/06/16 1542 DIS IN 09/08/16 [facility] [address] [place] [address]
== END 2016-09-08 17:15 | DRG 249 ==
LOC: D.ER 19:57 → D.M2 21:58 → OBSVTIME 21:58 → D.M2 09-05 13:38
PROVIDERS: Family Medicine; Internal Medicine Cardiovascular Disease; ADMIT Family Medicine
PROC: B2111ZZ Fluoroscopy of Multiple Coronary Arteries using Low Osmolar Contrast (ICD-10-PCS; 2016-09-06)
PROC: 02703EZ Dilation of Coronary Artery, One Artery with Two Intraluminal Devices, Percutaneous Approach (ICD-10-PCS; principal; 2016-09-06 13:30)
PROC: 4A023N7 Measurement of Cardiac Sampling and Pressure, Left Heart, Percutaneous Approach (ICD-10-PCS; 2016-09-06 13:30)
DX: I25.110 Atherosclerotic heart disease of native coronary artery with unstable angina pectoris (principal); J98.11 Atelectasis; G89.29 Other chronic pain; M54.9 Dorsalgia, unspecified; R94.31 Abnormal electrocardiogram [ECG] [EKG]; J30.9 Allergic rhinitis, unspecified; I10 Essential (primary) hypertension; K59.00 Constipation, unspecified; F41.9 Anxiety disorder, unspecified; I25.2 Old myocardial infarction; Z95.5 Presence of coronary angioplasty implant and graft; Z85.72 Personal history of non-Hodgkin lymphomas

== ENCOUNTER → 2017-02-07 13:00 | Outpatient (CLI) | payer MEDICARE ==
[2016-09-06 12:08] VITALS: BMI 28.9
[~2017-02-07 13:00] MED LIST changes: +BACTRIM 400-801 TAB PO; +CYCLOBENZAPRINE10 MG PO; +LINZESS145 MCG PO; +METOPROLOL TART25 MG PO
== END | disposition home or self-care (01) ==
LOC: D.US 13:00
DX: I82.401 Acute embolism and thrombosis of unspecified deep veins of right lower extremity (principal); R60.0 Localized edema